=== PATIENT | female | born 1985 | race Two or more races ===

== ENCOUNTER 2024-11-14 18:49 | Emergency (ER) | payer MEDICAID, SELFPAY ==
[2024-11-14 19:47] VITALS: BP 130/68; PULSE 89; RESP 18; TEMP 36.7; O2SAT 99; BMI 38.0
--- NOTE | 2024-11-14 20:12 | PD.EDLOWEX ---
Lower Extremity Injury RME/HPI General Chief Complaint: Extremity Problem,Nontraumatic Stated Complaint: Right calf pain, heard a pop Time Seen by Provider: 11/14/24 20:05 Arrival date/time: 11/14/24 18:49 39F with no significant PMH presents to ED with R calf pain after she was stretching it and hurt a pop. Limitations: no limitations Related Data Allergies Allergy/AdvReac Type Severity Reaction Status Date / Time No Known Allergies Allergy Verified 06/05/23 14:23 Review of Systems Review of Systems Systems Reviewed: All systems reviewed, normal except as documented Constitutional Constitutional: Reports system reviewed and no additional complaints, except as documented, Denies fever(s) and Denies headache(s) ENT Ears, Nose, Mouth, and Throat: Denies disequilibrium and Denies headache(s) Cardiovascular Cardiovascular: Reports system reviewed and no additional complaints, except as documented, Denies chest pain and Denies dyspnea Respiratory Respiratory: Reports system reviewed and no additional complaints, except as documented, Denies cough and Denies dyspnea Gastrointestinal Gastrointestinal: Reports system reviewed and no additional complaints, except as documented, Denies abdominal pain, Denies nausea and Denies vomiting Musculoskeletal Musculoskeletal: Reports as per HPI and Reports other (leg pain) Neurologic Neurologic: Reports system reviewed and no additional complaints, except as documented, Denies confusion, Denies disequilibrium and Denies headache(s) Psychiatric Psychiatric: Denies confusion Past Medical History Social History SMOKING STATUS: Never smoker ED Exam General Limitations: Present no limitations General appearance: Present alert and in no apparent distress Head Head exam: Present atraumatic Eye Eye exam: Present normal appearance, PERRL and EOMI ENT ENT exam: Present normal exam, normal oropharynx and mucous membranes moist Neck Neck exam: Present normal inspection, full ROM and trachea midline Chest Chest inspection: Present normal inspection and symmetric chest wall rise Respiratory Respiratory exam: Present normal lung sounds bilaterally Cardiovascular Cardiovascular exam: Present regular rate, normal rhythm and normal heart sounds Abdominal Exam Abdominal exam: Present soft and normal bowel sounds Extremities Exam Extremities exam: Present full ROM Expanded Lower Extremity Exam Lower leg exam: Present full ROM (R ) and tenderness Back Exam Back exam: Present normal inspection and full ROM Neurological Exam Neurological exam: Present alert, oriented X3 and CN II-XII intact Psychiatric Psychiatric exam: Present normal affect and normal mood Skin Skin exam: Present warm, dry, intact and normal color Course Quality Measures none Orders Category Date Time Status Crutches .NOW Care 11/14/24 20:07 Active Vital Signs Vital signs: Vital Signs Temperature 98.1 F 11/14/24 19:47 Pulse Rate 89 11/14/24 19:47 Respiratory Rate 18 11/14/24 19:47 Blood Pressure 130/68 11/14/24 19:47 Pulse Oximetry (%) 99 11/14/24 19:47 Oxygen Delivery Method Room Air 11/14/24 19:47 O2 at 99% on RA and WNLs Extremity Injury, Lower MDM Narrative MDM Narrative:: 39F with no significant PMH presents to ED with R calf pain after she was stretching it and hurt a pop. Physical exam reveals some R lower leg tenderness. ROM mostly intact. Gait slight limp. Patient is afebrile, calm, and alert. Likely MSK-related. 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 Patient data External records reviewed:: None Clinical information provided by:: patient Social determinants that could affect healthcare access:: none Patient has the following chronic illnesses:: none How is presenting disease/condition affected by chronic disease/condition?: no chronic disease Evaluation data The following diagnostics were reviewed and interpreted by me:: other (specify) (none) Lab and/or radiology exams considered but not ordered:: not ordered Interpretation Summary: n/a Medications / Prescriptions Medications or Prescriptions considered but not ordered:: not ordered Medication administrations:: n/a Consultations Consultation(s) initiated? (list below): No Diagnosis Extremity Injury, Lower Differential Diagnosis: ankle sprain and strain, acute internal derangement of knee, fracture of femur, fracture of hip and other (leg pain, DVT) Most likely diagnosis given after review of the tests above:: leg pain Admission Indicated Admission indicated?: not indicated Admission Request Was there a request for admission?: No Disposition Plan Disposition Plan: Discharge Discharge Attestation Discharge Attestation: The patient and all family members were given an opportunity to ask questions and understood the discharge instructions. Discharge instructions specifically effects, indications for sooner follow up or return to the emergency department, and the expected course of current diagnosis. Patient condition: Stable Discharge Plan Plan Patient Disposition: HOME (Self Care) Disposition Comment: Stable Problem List Clinical Impression: Leg pain Patient/Caregiver Discharge Instructions Education Materials: ED Myalgias, ED RICE Additional Instructions: Please follow-up with PCP within 24-48 hours and return immediately if symptoms worsen. If problem persists, recommend outpatient PT and/or MRI follow-up. In the meantime, rest, use ice/heat, and/or compression. Print Language: [place]ian Stand Alone Forms: Work/School Release, Patient Portal Info Letter PA/SKEIN TIER Supervising Physician PA/SKEIN TIER Supervising Physician: Dr. Mo
== END 2024-11-14 20:18 | disposition home or self-care (01) ==
LOC: SERX 20:54
PROVIDERS: Emergency Provider Emergency Medicine
DX: M79.661 Pain in right lower leg (principal)
CPT/HCPCS: 99282